=== PATIENT | female | born 1995 | race Caucasian/White ===

== ENCOUNTER → 2019-12-09 10:04 | Outpatient (BNVA) | payer MEDICARE, MEDICAID, SELFPAY | PROVIDERS: Family Provider Physician Assistant Medical; PCP Nurse Practitioner Family; Visit Provider Nurse Practitioner Family | DX: K59.00 Constipation, unspecified (principal); Z13.6 Encounter for screening for cardiovascular disorders | CPT/HCPCS: 80053; 80061; 85025; 86580 ==

== ENCOUNTER → 2021-02-07 15:23 | Outpatient (BNVA) | payer MEDICARE, MEDICAID, SELFPAY | PROVIDERS: Family Provider Physician Assistant Medical; PCP Nurse Practitioner Family; Visit Provider Nurse Practitioner Family | DX: Z00.00 Encounter for general adult medical examination without abnormal findings (principal); Z76.0 Encounter for issue of repeat prescription; Z68.27 Body mass index [BMI] 27.0-27.9, adult; Z71.3 Dietary counseling and surveillance; Z71.82 Exercise counseling; Z11.1 Encounter for screening for respiratory tuberculosis | CPT/HCPCS: 80053; 84443; 85025 ==

== ENCOUNTER → 2022-05-16 08:24 | Outpatient (BNVA) | payer MEDICARE, MEDICAID, SELFPAY | PROVIDERS: Family Provider Physician Assistant Medical; PCP Nurse Practitioner Family; Visit Provider Nurse Practitioner Family | DX: Z13.6 Encounter for screening for cardiovascular disorders (principal); Z11.3 Encounter for screening for infections with a predominantly sexual mode of transmission; Z11.1 Encounter for screening for respiratory tuberculosis; Z79.899 Other long term (current) drug therapy | CPT/HCPCS: 80053; 80061; 81000; 85025; 86580; 87491; 87591; 99398 ==

== ENCOUNTER → 2023-05-21 17:00 | Outpatient (BNVA) | payer MEDICARE, MEDICAID, SELFPAY | PROVIDERS: Family Provider Physician Assistant Medical; PCP Nurse Practitioner Family; Visit Provider Nurse Practitioner | DX: Z13.6 Encounter for screening for cardiovascular disorders (principal) | CPT/HCPCS: 80053; 80061; 81000; 85025 ==

== ENCOUNTER → 2023-06-25 13:22 | Outpatient (BNVA) | payer MEDICARE, MEDICAID, SELFPAY | PROVIDERS: Family Provider Physician Assistant Medical; PCP Nurse Practitioner Family; Visit Provider Nurse Practitioner Family | DX: J02.9 Acute pharyngitis, unspecified (principal); R50.9 Fever, unspecified; R59.1 Generalized enlarged lymph nodes | CPT/HCPCS: 85025; 86308; 87071; 87426; 87880 ==

== ENCOUNTER → 2023-07-17 14:18 | Outpatient (BNVA) | payer MEDICARE, MEDICAID, SELFPAY | PROVIDERS: Family Provider Physician Assistant Medical; PCP Nurse Practitioner Family; Visit Provider Nurse Practitioner Family | DX: R55 Syncope and collapse (principal) | CPT/HCPCS: 80053; 85025 ==

== ENCOUNTER → 2023-07-26 09:59 | Outpatient (BNVA) | payer MEDICARE, MEDICAID, SELFPAY | PROVIDERS: Family Provider Physician Assistant Medical; PCP Nurse Practitioner Family; Referring Provider Nurse Practitioner Family; Visit Provider Internal Medicine Cardiovascular Disease | DX: R55 Syncope and collapse (principal) | CPT/HCPCS: 93242 ==

== ENCOUNTER → 2023-08-02 09:41 | Outpatient (BNVA) | payer MEDICARE, MEDICAID, SELFPAY | PROVIDERS: Family Provider Physician Assistant Medical; PCP Nurse Practitioner Family; Visit Provider Nurse Practitioner | DX: Z12.4 Encounter for screening for malignant neoplasm of cervix (principal); R73.9 Hyperglycemia, unspecified | CPT/HCPCS: 83036; 88175 ==

== ENCOUNTER 2024-03-27 11:56 | Emergency (ER) | payer MEDICARE, MEDICAID, SELFPAY ==
[2024-03-27 11:58] VITALS: BP 118/78; PULSE 76; RESP 17; TEMP 36.5; O2SAT 98; BMI 30.2
--- NOTE | 2024-03-27 12:04 | ECG_ITS ---
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 Measurements Intervals [place] Rate: 72 P: 60 WA: 154 QRS: 76 QRSD: 81 T: 57 QT: 393 QTc: 430 Interpretive Statements SINUS RHYTHM Compared to ECG 06/02/2019 10:26:13 No significant changes Electronically Signed On 03-27-2024 17:09:08 CDT by Chandler Parikh M.D. [id number]
[2024-03-27 13:05] LABS: Basophils % 0.1 %; Eosinophils # 0.1 10^3/uL (0.0-0.8); Hematocrit 44.7 % (36-47); Lymphocytes # 3.1 10^3/uL (0.8-4.8); Mean Corpuscular Hemoglobin 29.9 pg (27-33); Mean Corpuscular Volume 93.3 fl (85-98); Mean Platelet Volume 10.5 fL (7.4-10.4); Monocytes # 0.4 10^3/uL (0.2-0.9); Monocytes % 4.8 %; Neutrophils # 4.37 10^3/uL (1.8-7.7); Neutrophils % 54.8 %; Nucleated Red Blood Cells % 0 %; Platelet Count 256 10^3/cmm (157-399); Red Blood Count 4.79 10^6/uL (3.85-5.65); Red Cell Distribution Width 11.9 % (12.1-15.1); White Blood Count 7.97 10^3/uL (3.29-11.43)
[2024-03-27 13:20] LABS: HCG, Serum Qual Negative (Negative)
[2024-03-27 13:21] LABS: Alanine Aminotransferase 17 U/L (0-33); Albumin Level 4.2 g/dL (3.5-5.2); Alkaline Phosphatase 58 U/L (35-105); Aspartate Amino Transferase 18 U/L (0-32); Blood Urea Nitrogen 10 mg/dL (6-20); Calcium 9.2 mg/dL (8.5-10.5); Carbon Dioxide 27 mmol/L (22-29); Chloride 104 mmol/L (98-107); Creatinine Clr Calc Pharmacy 112.8311; Globulin 3.3 g/dL (1.3-4.6); Glomerular Filtration Rate 84.2 mL/min (90-130); Glucose 93 mg/dL (65-115); Osmolality Calculated 289 mOsm/kg (285-295); Sodium 140 mmol/L (136-145); Total Bilirubin 0.3 mg/dL (0.15-1.2); Total Protein 7.5 g/dL (6.6-8.7)
--- NOTE | 2024-03-27 13:26 | CT_ITS ---
WS: [id number] CT HEAD NONCONTRAST HISTORY: light headed TECHNIQUE: Contiguous axial imaging performed through the brain in 2.5 mm imaging. Bone and soft tiss ue windows. Sagittal and coronal reformats reviewed. All CT scans at [facility] use at least one of these dose optimization techniques: automated exposure control; mA and/or kV adjustment per pa tient size (includes targeted exams where dose is matched to clinical indication); or iterative recon struction. DLP: 1049.58 mGy.cm COMPARISON: None available. No acute intracranial hemorrhage, midline shift or mass effect. No atrophy or prior infarcts or herniation. Ventricles: Normal size with no hydrocephalus. Paranasal sinuses: As visualized are clear. Mastoid air cells: Well pneumatized. Calvarium and scalp: Skull is intact with no soft tissue edema or swelling. CT/CT head wo con* [id number] IMPRESSION: Negative head CT.
[2024-03-27] MEDS: sodium chloride 0.9% 1,000 ML 999 ML IV (13:48)
--- NOTE | 2024-03-27 13:53 | ED_ITS ---
HPI - Dizziness 2 General: Chief Complaint: Dizziness Stated Complaint: dizzy Time Seen by Provider: 03/27/24 13:19 Source: patient Mode of arrival: ambulatory Limitations: no limitations History of Present Illness: HPI Narrative: 29-year-old female states that last 2 we eks she has had some nausea she had vomiting a couple weeks ago states that since then she is just had some intermittent lightheaded spells states she will just feel like she is going to pass out and feels lightheaded. She denies any room spinning sensations she denies any headache she had no chest pain denies any abdominal pain. She denies any fevers. Associated symptoms: Denies chest pain, chills or headache(s) Review of Systems 2 Const: Denies: fever(s), chills, body aches or change in appetite Eyes: Denies: blurry vision or eye discomfort ENMT: Denies: throat pain or dental pain Card: Reports: pre-syncope; Denies: chest pain Resp: Denies: dyspnea GI: Denies: abdominal pain : Denies: dysuria Musc: Denies: neck pain or back pain Skin/Breast: Denies: rash Neuro: Denies: headache(s) PFSH ED 2 PFSH: Medical History Overweight (BMI 25.0-29.9) ADHD Chronic post-traumatic stress disorder (PTSD) Seasonal allergies Insomnia Extrapyramidal and movement disorder OCD (obsessive compulsive disorder) Depression Acid reflux Surgical History No history of previous surgery Family History Other Unknown family medical history Social History Smoking and tobacco/nicotine status: never used tobacco/nicotine Second hand smoke exposure: No Alcohol intake: never Substance/Drug Use: never Adopted: No Caregiver/support person: Yes Lives independently: No Household members: caregiver Housing: House Marital status: Single Number of children: 0 Number of grandchildren: 0 Highest education level completed: High School Graduate service: No Current occupational status: unemployed Current occupational exposures/hazards: No Pets and animals: Yes Pets & animals: farm animals Do you think of yourself as: Straight/Heterosexual Current gender identity: Female Special johanna needs: No Physical Exam 2 Const: COMMON NORMALS: no acute distress, patient oriented x3 and healthy appearing HENMT: COMMON NORMALS: normocephalic and atraumatic HEAD & SCALP: n ormocephalic and atraumatic Eye: COMMON NORMALS: Equal, round and reactive pupils present and EOMs intact bilaterally PUPIL: Yes Equal, round and reactive pupils present Neck/C-Spine: COMMON NORMALS: full ROM and supple Chest: COMMONS NORMALS: normal inspection of the chest Resp: COMMON NORMALS: normal respiratory effort Cardio: COMMON NORMALS: regular rate, regular rhythm and No murmurs present (Cardio) RATE: regular rate RHYTHM: regular rhythm Extremity: COMMON NORMALS: normal to inspection and full ROM Neuro: COMMON NORMALS: patient oriented x3, moves all extremities and no focal motor deficits Psych: COMMON NORMALS: mental status grossly normal, Normal thought process present and cooperative THOUGHT PROCESS: Normal thought process present Skin: COMMON NORMALS: no rashes or lesions noted and no wounds GENERAL SKIN EXAM: no rashes or lesions noted Course 2 Vital Signs: Vital signs: Vital Signs Temperature 97.7 F 03/27/24 11:58 Pulse Rate 76 03/27/24 11:58 Respiratory Rate 17 03/27/24 11:58 Blood Pressure 118/78 03/27/24 11:58 Pulse Oximetry 98 03/27/24 11:58 Oxygen Delivery Me thod Room Air 03/27/24 11:58 MDM - Dizziness Medical Decision Making Patient presents here with lightheadedness blood work head CT are normal here patient's stable for discharge she is follow-up with PCP her vital signs here been normal she is return if worsening she understands agrees to plan Medical Records I reviewed the patient's medical records. Lab Data I reviewed the patient's lab results. 03/27/24 12:56 03/27/24 12:[address] 03/27/24 13:26 IMPRESSION: Negative head CT. Laboratory Results WBC 7.97 10^3/uL (3.29-11.43) 03/27/24 12:56 RBC 4.79 10^6/uL (3.85-5.65) 03/27/24 12:56 Hgb 14.30 g/dL (11.27-16.99) 03/27/24 12:56 Hct 44.7 % (36-47) 03/27/24 12:56 MCV 93.3 fl (85-98) 03/27/24 12:56 MCH 29.9 pg (27-33) 03/27/24 12:56 MCHC 32.0 g/dL (30-55) 03/27/24 12:56 RDW 11.9 % (12.1-15.1) L 03/27/24 12:56 Plt Count 256 10^3/cmm (157-399) 03/27/24 12:56 MPV 10.5 fL (7.4-10.4) H 03/27/24 12:56 Neut % (Auto) 54.8 % 03/27/24 12:56 Lymph % (Auto) 39.0 % 03/27/24 12:56 [place] % (Auto) 4.8 % 03/27/24 12:56 Eos % (Auto) 1.0 % 03/27/24 12:56 Baso % (Auto) 0.1 % 03/27/24 12:56 Neut # (Auto) 4.37 10^3/uL (1.8-7.7) 03/27/24 12:56 Lymph # (Auto) 3.1 10^3/uL (0.8-4.8) 03/27/24 12:56 [place] # (Auto) 0.4 10^3/uL (0.2-0.9) 03/27/24 12:56 Eos # (Auto) 0.1 10^3/uL (0.0-0.8) 03/27/24 12:56 Baso # (Auto) 0.0 10^3/uL (0.0-0.1) 03/27/24 12:56 Nucleated RBC % (auto) 0 % 03/27/24 12:56 Nucleated RBCs # 0.0 /100WBC 03/27/24 12:56 Sodium 140 mmol/L (136-145) 03/27/24 12:56 Potassium 4.0 mmol/L (3.5-5.1) 03/27/24 12:56 Chloride 104 mmol/L (98-107) 03/27/24 12:56 Carbon Dioxide 27 mmol/L (22-29) 03/27/24 12:56 Anion Gap 13.0 (5-19) 03/27/24 12:56 BUN 10 mg/dL (6-20) 03/27/24 12:56 Creatinine 0.8 mg/dL (0.5-0.9) 03/27/24 12:56 GFR Calculation 84.2 mL/min (90-130) L 03/27/24 12:56 Glucose 93 mg/dL (65-115) 03/27/24 12:56 Calculated Osmolality 289 mOsm/kg (285-295) 03/27/24 12:56 Calcium 9.2 mg/dL (8.5-10.5) 03/27/24 12:56 Total Bilirubin 0.3 mg/dL (0.15-1.2) 03/27/24 12:56 AST 18 U/L (0-32) 03/27/24 12:56 ALT 17 U/L (0-33) 03/27/24 12:56 Alkaline Phosphatase 58 U/L (35-105) 03/27/24 12:56 Total Protein 7.5 g/dL (6.6-8.7) 03/27/24 12:56 Albumin 4.2 g/dL (3.5-5.2) 03/27/24 12:56 Globulin 3.3 g/dL (1.3-4.6) 03/27/24 12:56 HCG, Qual Negative (Negative) 03/27/24 12:56 All radiology interpretation(s) finalized by discharge EKG Data EKG 1: I personally reviewed and interpreted this EKG as follows: EKG interpretation date: 03/27/24 EKG interpretation time: 12:04 Interpretation: nsr hr [address] or t wave abnormalities qrs 81 qtc 416 Discharge Plan Discharge Patient Disposition: Home Clinical Impression: Light headedness Condition: Stable Prescriptions: No Action sertraline [Zoloft] 100 mg tablet 100 mg PO QDAY benztropine 0.5 mg tablet 0.5 mg PO BID lamotrigine [Lamictal] 200 mg tablet 200 mg PO BID Rx Instructions: 1/2 tab PO in the AM. 1 tab PO at HS> trazodone 50 mg tablet 50 mg PO QDAY ziprasidone HCl [Geodon] 80 mg capsule 80 mg PO .hs ziprasidone HCl 20 mg capsule 20 mg PO DAILY perphenazine 2 mg tablet 2 mg PO TID meclizine 25 mg tablet 25 mg PO BID PRN (Reason: dizziness) Qty: 28 0RF ondansetron 8 mg tablet,disintegrating 8 mg PO Q8H PRN (Reason: nausea and vomiting) Qty: 10 0RF prednisone 20 mg tablet 20 mg PO BID Qty: 6 0RF diphenhydramine HCl [Benadryl] 25 mg capsule 25 mg PO Q6H PRN (Reason: allergy symptoms) 30 Days Qty: 14 11RF guaifenesin [Mucinex] 600 mg tablet extended release 12hr 600 mg PO Q12H PRN (Reason: congestion) 30 Days Qty: 14 11RF ibuprofen 400 mg tablet 400 mg PO TID PRN (Reason: pain or elevated temp) 30 Days Qty: 60 11RF polyethylene glycol 3350 [Miralax] 17 gram/dose powder 17 g PO DAILY PRN (Reason: constipation) Qty: 510 11RF Discharge Orders: Discharge ED (Routine); Ordered 03/27/24 Ordered By: Carolynn Thompson Referrals: Marian Bianchi FNP-C [Primary Care Provider] - 4-7 days Discharge Diet: Advance as tolerated Discharge Activity: Resume usual activity Patient Instructions: Lightheadedness (ED) Coding Level of Care Code ED Project Drilling Engineer for Nathan Cason
[2024-03-27 14:49] VITALS: BP 114/78; PULSE 60; O2SAT 96
[2024-03-27 15:35] LABS: Add Urine Microscopic? NO; Charge for UA Resulting for Rev
[2024-03-27 15:45] LABS: Bilirubin Urine Neg (Negative); Blood Urine Neg (Negative); Glucose Urine UA Norm (Normal); Ketones Urine Negative (Negative); Leukocyte Esterase Urine Negative (Negative); Nitrate Urine Negative (Negative); Protein Urine Neg (Negative); Specific Gravity, Urine 1.005 (1.005-1.030); Urine Appearance Clear (CLEAR); Urine Color Yellow (Yellow); Urobilinogen Urine Neg (Negative); pH Urine 6 (5-7)
== END 2024-03-27 15:16 | disposition home or self-care (01) ==
PROVIDERS: Emergency Provider Emergency Medicine; PCP Nurse Practitioner Family
DX: R42 Dizziness and giddiness (principal)
CPT/HCPCS: 36415; 70450; 80053; 81003; 84703; 85025; 93005; 99284; J7030

== ENCOUNTER → 2024-08-25 15:47 | Outpatient (BNVA) | payer MEDICARE, MEDICAID, SELFPAY | PROVIDERS: PCP Nurse Practitioner Family; Visit Provider Nurse Practitioner | DX: R39.9 Unspecified symptoms and signs involving the genitourinary system (principal) | CPT/HCPCS: 81000; 87086 ==

== ENCOUNTER → 2025-03-12 08:53 | Outpatient (BNVA) | payer MEDICARE, MEDICAID, SELFPAY | PROVIDERS: PCP Nurse Practitioner Family; Visit Provider Nurse Practitioner | DX: Z13.6 Encounter for screening for cardiovascular disorders (principal) | CPT/HCPCS: 81000 ==

== ENCOUNTER → 2025-04-20 09:15 | Outpatient (BNVA) | payer MEDICARE, MEDICAID, SELFPAY | PROVIDERS: PCP Nurse Practitioner Family; Visit Provider Nurse Practitioner | DX: Z13.6 Encounter for screening for cardiovascular disorders (principal); K59.01 Slow transit constipation; Z12.4 Encounter for screening for malignant neoplasm of cervix | CPT/HCPCS: 80053; 80061; 84443; 85025; 88175 ==